=== PATIENT | male | born 1985 | race American Indian/Alaskan Native ===

== ENCOUNTER 2022-08-06 17:17 | Emergency (ER) | payer OTHER ==
[2022-08-06] MEDS ORDERED: SODIUM CHLORIDE 0.9% 1000 ML 1,000 ML IV ONE (22:18)
[2022-08-06] MEDS ORDERED: ONDANSETRON 4 MG/2 ML INJ IV ONE (22:18)
--- NOTE | 2022-08-06 22:47 | Emergency Department Report ---
ED Abdominal Pain HPI - General Chief Complaint: Abdominal Pain Stated Complaint: FOOD POISONING, NAUSEA WEAK Time Seen by Provider: 08/06/22 22:17 Source: patient Mode of arrival: Ambulatory Limitations: No Limitations - History of Present Illness Initial Comments: Patient 36-year-old male who presents with for same symptoms with nausea vomiting diarrhea after eating ribs at cookout 6 days ago. Symptoms include nausea vomiting diarrhea. There is no fevers no chills no shortness of breath. Symptoms are exacerbated by p.o. intake. Symptoms are relieved by nothing tried. Both patients have identical symptoms. - Related Data Home Medications Medication Instructions Recorded Confirmed Last Taken Amoxicillin [Trimox] 500 mg PO Q8H 05/31/15 05/31/15 Unknown Previous Rx's Medication Instructions Recorded Last Taken Type Gentamicin 0.3% Ophth Soln 2 drops OP Q4H #1 bottle 05/31/15 Unknown Rx Dicyclomine [Bentyl] 10 mg PO QID PRN #15 capsule 08/07/22 Unknown Rx Ondansetron [Zofran Odt] 4 mg PO Q8HR #12 tab.rapdis 08/07/22 Unknown Rx Allergies Allergy/AdvReac Type Severity Reaction Status Date / Time No Known Allergies Allergy Verified 08/06/22 17:47 ED Review of Systems ROS: Stated complaint: FOOD POISONING, NAUSEA WEAK Other details as noted in HPI Constitutional: denies: chills, fever Eyes: denies: eye pain, eye discharge, vision change ENT: denies: ear pain, throat pain Respiratory: denies: cough, shortness of breath, wheezing Cardiovascular: denies: chest pain, palpitations Endocrine: no symptoms reported Gastrointestinal: abdominal pain, nausea, vomiting, diarrhea. denies: constipation, hematemesis, melena, hematochezia Genitourinary: denies: urgency, dysuria Musculoskeletal: denies: back pain, joint swelling, arthralgia Skin: denies: rash, lesions Neurological: denies: headache, weakness, paresthesias, vertigo Psychiatric: denies: anxiety, depression Hematological/Lymphatic: denies: easy bleeding, easy bruising ED Past Medical Hx - Social History Smoking Status: Current Every Day Smoker Substance Use Type: None - Medications Home Medications: Home Medications Medication Instructions Recorded Confirmed Last Taken Type Amoxicillin [Trimox] 500 mg PO Q8H 05/31/15 05/31/15 Unknown History Gentamicin 0.3% Ophth Soln 2 drops OP Q4H #1 bottle 05/31/15 Unknown Rx Dicyclomine [Bentyl] 10 mg PO QID PRN #15 capsule 08/07/22 Unknown Rx Ondansetron [Zofran Odt] 4 mg PO Q8HR #12 tab.rapdis 08/07/22 Unknown Rx ED Physical Exam - General Limitations: No Limitations General appearance: alert, in no apparent distress - Head Head exam: Present: atraumatic, normocephalic - Eye Eye exam: Present: normal appearance, EOMI Pupils: Present: normal accommodation - ENT ENT exam: Present: mucous membranes moist - Neck Neck exam: Present: normal inspection, full ROM. Absent: tenderness - Respiratory Respiratory exam: Present: normal lung sounds bilaterally. Absent: respiratory distress, wheezes - Cardiovascular Cardiovascular Exam: Present: regular rate, normal rhythm, normal heart sounds. Absent: systolic murmur, diastolic murmur, rubs, gallop - GI/Abdominal GI/Abdominal exam: Present: soft, normal bowel sounds. Absent: distended, tenderness, guarding, rebound, rigid, bruit, hernia - Rectal Rectal exam: Present: deferred - Extremities Exam Extremities exam: Present: normal inspection, full ROM, normal capillary refill. Absent: pedal edema - Back Exam Back exam: Present: normal inspection, full ROM. Absent: CVA tenderness (R), CVA tenderness (L) - Neurological Exam Neurological exam: Present: alert, oriented X3, CN II-XII intact, normal gait - Psychiatric Psychiatric exam: Present: normal affect, normal mood - Skin Skin exam: Present: warm, dry, intact, normal color. Absent: rash ED Course Vital Signs 08/06/22 17:45 Temperature 99.3 F Pulse Rate 64 Respiratory 18 Rate Blood Pressure 159/101 [Left] O2 Sat by Pulse 100 Oximetry ED Medical Decision Making - Lab Data Result diagrams: 08/06/22 22:56 08/07/22 Unknown Labs 08/06/22 08/06/22 08/07/22 22:56 22:56 Unknown WBC 9.1 RBC 5.40 H Hgb 16.8 H Hct 50.6 H MCV 94 MCH 31 MCHC 33 RDW 14.0 Plt Count 233 Love % (Auto) Television Cameraman Add Manual Diff Complete Total Counted 100 Seg Neuts % (Manual) 48.0 Band Neutrophils % 5.0 Lymphocytes % (Manual) 35.0 Reactive Lymphs % (Man) 0 Monocytes % (Manual) 10.0 H Eosinophils % (Manual) 2.0 Basophils % (Manual) 0 Metamyelocytes % 0 Myelocytes % 0 Promyelocytes % 0 Blast Cells % 0 Nucleated RBC % Not Reportable Seg Neutrophils # Man 4.4 Band Neutrophils # 0.5 Lymphocytes # (Manual) 3.2 Abs React Lymphs (Man) 0.0 Monocytes # (Manual) 0.9 H Eosinophils # (Manual) 0.2 Basophils # (Manual) 0.0 Metamyelocytes # 0.0 Myelocytes # 0.0 Promyelocytes # 0.0 Blast Cells # 0.0 WBC Morphology Not Reportable Hypersegmented Neuts Not Reportable Hyposegmented Neuts Not Reportable Hypogranular Neuts Not Reportable Smudge Cells Not Reportable Toxic Granulation Not Reportable Toxic Vacuolation Not Reportable Dohle Bodies Not Reportable Pelger-Huet Anomaly Not Reportable Emma Rods Not Reportable Platelet Estimate Consistent w auto Clumped Platelets Not Reportable Plt Clumps, EDTA Not Reportable Large Platelets Not Reportable Giant Platelets Not Reportable Platelet Satelliting Not Reportable Plt Morphology Comment Not Reportable RBC Morphology Not Reportable Dimorphic RBCs Not Reportable Polychromasia Not Reportable Hypochromasia Not Reportable Poikilocytosis Not Reportable Anisocytosis 1+ Microcytosis Not Reportable Macrocytosis 1+ Spherocytes Not Reportable Pappenheimer Bodies Not Reportable Sickle Cells Not Reportable Target Cells Not Reportable Tear Drop Cells Not Reportable Ovalocytes Not Reportable Helmet Cells Not Reportable Briceno-[place]eth[place] Bodies Not Reportable [place] Rings Not Reportable Isom Cells Not Reportable Bite Cells Not Reportable Crenated Cell Not Reportable Elliptocytes Not Reportable Acanthocytes (Spur) Not Reportable Rouleaux Not Reportable Hemoglobin C Crystals Not Reportable Schistocytes Not Reportable Malaria parasites Not Reportable Marcel Bodies Not Reportable Hem Pathologist Commnt No Sodium 135 L 139 Potassium TNR 3.0 L Chloride 94.7 L 99.6 Carbon Dioxide 29 30 Anion Gap 20 12 BUN 13 13 Creatinine 1.0 0.9 Estimated GFR > 60 > 60 BUN/Creatinine Ratio 13 14 Glucose 91 96 Calcium 8.8 8.3 L Total Bilirubin 0.80 AST 62 H ALT 33 Alkaline Phosphatase 52 Total Protein 8.2 Albumin 4.4 Albumin/Globulin Ratio 1.2 - Medical Decision Making Symptoms are resolved with medications given in ED patient tolerating p.o. intake without nausea vomiting at this time. There is no fevers no chills. Plan DC to home with prescriptions and will follow-up primary care doctor in 2 to 3 days. Patient will return to the emergency department should symptoms worsen. Critical care attestation.: If time is entered above; I have spent that time in minutes in the direct care of this critically ill patient, excluding procedure time. ED Disposition Clinical Impression: Nausea vomiting and diarrhea, Food poisoning Disposition: HOME / SELF CARE / HOMELESS Is pt being admited?: No Does the pt Need Aspirin: No Condition: Stable Instructions: Food Poisoning, [id number], Nausea and Vomiting, Adult, [id number], Rehydration, Adult Additional Instructions: Take medication as prescribed, hydrate as directed. Follow-up with your doctor in 2 to 3 days. Return to emergency department should symptoms worsen. Prescriptions: Dicyclomine [Bentyl] 10 mg PO QID PRN #15 capsule PRN Reason: abdominal spasm Ondansetron [Zofran Odt] 4 mg PO Q8HR #12 tab.rapdis Referrals: WARREN KENDRICK MD [Staff Physician] - 3-5 Days Forms: Work/School Release Form(ED) Time of Disposition: 03:39
[2022-08-06 23:31] LABS: Hematocrit 50.6 % (35.5-45.6); Hemoglobin 16.8 gm/dl (11.8-15.2); Mean Corpuscular HGB Conc 33 % (32-34); Mean Corpuscular Volume 94 fl (84-94); Platelet Count 233 K/mm3 (140-440)
[2022-08-06 23:56] LABS: Alanine Aminotransferase 33 units/L (7-56); Albumin 4.4 g/dL (3.9-5); BUN/Creatinine Ratio 13; Blood Urea Nitrogen 13 mg/dL (9-20); Calcium 8.8 mg/dL (8.4-10.2); Hemolysis Index 701
[2022-08-07] MEDS ORDERED: SODIUM CHLORIDE 0.9% 1000 ML 1,000 ML IV ONE (00:51)
[2022-08-07 00:56] LABS: Band Neutrophils # (Manual) 0.5 K/mm3; Basophils % (Manual) 0 % (0.0-1.8); Total Cells Counted 100
[2022-08-07 00:57] LABS: Anisocytosis 1+; Macrocytosis 1+; Platelet Estimate Consistent w Auto
[2022-08-07 01:09] LABS: BUN/Creatinine Ratio 14; Blood Urea Nitrogen 13 mg/dL (9-20); Calcium 8.3 mg/dL (8.4-10.2); Hemolysis Index 24
[2022-08-07 04:49] VITALS: BP 136/80
== END 2022-08-07 03:30 | disposition home or self-care (01) ==
LOC: ED 17:17
DX: A05.9 Bacterial foodborne intoxication, unspecified (principal); R11.2 Nausea with vomiting, unspecified; R19.7 Diarrhea, unspecified; F17.200 Nicotine dependence, unspecified, uncomplicated; Z79.899 Other long term (current) drug therapy
CPT/HCPCS: 36415; 80048; 80053; 85007; 85025; 96361; 96374; 99283; J2405; J7030